=== PATIENT | male | born 1955 | race Caucasian/White ===

== ENCOUNTER 2018-05-30 07:32 | Observation (INO) | payer OTHER ==
[~2018-05-30] VITALS: Ht 165.1 cm; Wt 74.5 kg
[2018-05-30] VITALS (25 sets, daily range): BP systolic 97–125; BP diastolic 58–70; PULSE 48–68; RESP 8–20; Ht 165.1 cm; Wt 74.5 kg
[2018-05-30] MEDS ORDERED: CIPROFLOXACIN 400MG/D5W 200 ML IVPB ONE (08:00)
[2018-05-30] MEDS ORDERED: MITOMYCIN 5 MG INJ OP ONE (09:00)
--- NOTE | 2018-05-30 09:51 | PREAC ---
Date/Time of Note Date/Time of Note DATE: 05/30/18 TIME: 09:48 Anesthesia Eval and Record Evaluation Time Pre-Procedure Interview DATE: 05/30/18 TIME: 09:48 Age 63 Sex male NPO: 8 hrs Preoperative diagnosis Bladder CA Planned procedure Cystoscopy, TURBT, coagulation of bleeder, instillation of mitomycin, possible bilateral retrograde pyelogram and bilateral ureteral stent insertion Past Medical History Past Medical History: None Surgery & Anesthesia Issues No known issue Meds Anticoagulation: No Beta Neal within 24 hr: No Reason Beta Neal not given: Pt. not on B-Neal Meds reviewed: Yes Allergies Coded Allergies: No Known Drug Allergies (Unverified Allergy, Unknown, 05/29/18) Allergies Reviewed: Yes Labs/Studies Labs Reviewed: Reviewed by anesthesiologist test: N/A Pre-procedure Exam Last vitals Vital Signs Date Temp Pulse Resp B/P (MAP) Pulse Ox O2 O2 Flow FiO2 Time Delivery Rate 05/30/18 96.9 51 16 106/61 100 Room Air 07:42 (76) Airway: Adequate mouth opening Mallampati: Mallampati I Teeth: Normal Lung: Normal Heart: Normal ASA Physical Status ASA physical status: 1 Emergency: None Planned Anesthetic General/MAC: ETT Planned Pain Management Parenteral pain med Pre-operative Attestations Prior to commencing anesthesia and surgery, the patient was re-evaluated, there was verification of: *The patient's identity *The results of appropriate recent lab work and preoperative vital signs *The above evaluation not changing prior to induction *Anesthetic plan, risk benefits, alternative and complications discussed with patient/family; questions answered; patient/family understands, accepts and wishes to proceed. NIGHAT COLLADO MD May 30, 2018 09:51
[2018-05-30] MEDS ORDERED: SUCCINYLCHOLINE CHLORIDE 100 MG/5 ML SYG IV ONE (10:23)
[2018-05-30] MEDS ORDERED: ROCURONIUM 50 MG INJ ONE (10:23)
[2018-05-30] MEDS ORDERED: LIDOCAINE 2% (SDV) 5 ML INJ ONE (10:23)
[2018-05-30] MEDS ORDERED: NEOSTIGMINE 3 MG/3 ML SYRINGE ONE ×2 (10:23→10:28)
[2018-05-30] MEDS ORDERED: GLYCOPYRROLATE 0.4 MG INJ ONE ×2 (10:23→10:28)
[2018-05-30] MEDS ORDERED: PROPOFOL 20 ML ONE (10:23)
--- NOTE | 2018-05-30 10:25 | HPN ---
Date/Time of Note Date/Time of Note DATE: 05/30/18 TIME: 10:25 Interval H&P Admission Note Pt. seen H&P reviewed: No system changes SHASHANK DIANA May 30, 2018 10:25
[2018-05-30] MEDS ORDERED: IOHEXOL 300MG/ML 30 ML BTL ONE (10:42)
[2018-05-30] MEDS ORDERED: MEPERIDINE 100 MG INJ ONE (10:58)
[2018-05-30] MEDS ORDERED: BELLADONNA ALK/OPIUM SUPP PR SCH (12:00)
[2018-05-30] MEDS ORDERED: DIPHENHYDRAMINE 50 MG INJ IV PRN (12:00)
[2018-05-30] MEDS ORDERED: MEPERIDINE 25 MG INJ IV PRN (12:00)
[2018-05-30] MEDS ORDERED: ONDANSETRON 4 MG INJ IV PRN (12:00)
[2018-05-30] MEDS ORDERED: METOCLOPRAMIDE 10 MG INJ IV PRN (12:00)
[2018-05-30] MEDS ORDERED: MIDAZOLAM 1 MG/ML 2 ML INJ IV PRN (12:00)
[2018-05-30] MEDS ORDERED: EPHEDrine SULFATE 50 MG/5 ML SYG IV PRN (12:00)
[2018-05-30] MEDS ORDERED: HYDROmorphONE 1 MG/5 ML IV SYRINGE IV PRN ×2 (12:00)
[2018-05-30] MEDS ORDERED: LABETALOL HCL 20MG INJ IV PRN (12:00)
[2018-05-30] MEDS ORDERED: hydrALAzine 20 MG INJ IV PRN (12:00)
[2018-05-30] MEDS ORDERED: OXYCODONE/ACETAMINOPHEN (5/325) TAB PO PRN ×2 (12:00)
[2018-05-30] MEDS ORDERED: FENTAnyl 50 MCG/ML VIAL IV PRN ×3 (12:00)
[2018-05-30] MEDS ORDERED: ATROPINE 1 MG/10 ML SYRINGE ONE (12:18)
--- NOTE | 2018-05-30 12:56 | OPR ---
Date/Time of Note Date/Time of Note DATE: 05/30/18 TIME: 12:53 Operative Report Preoperative Diagnosis Bladder cancer Postoperative Diagnosis Bladder cancer, hemorrhagic prostatitis, bph Operation/Procedure Performed CYtso , TURBT (large),.coagulation of bladder neck and prostate Surgeon lucía Plate Former none Anesthesia Type: general Estimated Blood Loss: 10 - 50 ml's Transfusion none Specimen bladder tumor Grafts/Implants none Tubes/Drains [address] Complications none Pt Condition Post Procedure: stable Disposition: PACU Indications bladder cancer Procedure Description dict [id number] SHASHANK DIANA May 30, 2018 12:56
[2018-05-30] MEDS: HYDROmorphONE 1 MG/5 ML IV SYRINGE IV PRN ×2 (12:58→13:14)
[2018-05-30] MEDS ORDERED: BELLADONNA ALK/OPIUM SUPP PR PRN (13:00)
[2018-05-30] MEDS ORDERED: MAGNESIUM HYDROXIDE 30ML CUP PO PRN (13:00)
--- NOTE | 2018-05-30 13:38 | PAC ---
Date/Time of Note Date/Time of Note DATE: 05/30/18 TIME: 13:38 Post-Anesthesia Notes Post-Anesthesia Note Last documented vital signs Vital Signs Date Temp Pulse Resp B/P (MAP) Pulse Ox O2 O2 Flow FiO2 Time Delivery Rate 05/30/18 98.1 12:59 05/30/18 68 16 125/63 99 Mask 12:42 (83) Activity: WNL Respiratory function: WNL Cardiovascular function: WNL Mental status: Baseline Pain reasonably controlled: Yes Hydration appropriate: Yes Nausea/Vomiting absent: Yes NIGHAT COLLADO MD May 30, 2018 13:38
[2018-05-30] MEDS: HYDROCODONE/APAP (5/325) TAB PO PRN ×2 (16:56→21:02)
--- NOTE | 2018-05-30 17:22 | OPR ---
DATE OF OPERATION: 05/30/2018 PREOPERATIVE DIAGNOSIS: Bladder cancer. POSTOPERATIVE DIAGNOSES: 1. Bladder cancer. 2. Benign prostatic hypertrophy. 3. Hemorrhagic prostatitis. PROCEDURES: Cystoscopy, transurethral resection of large bladder tumor, coagulation of bladder neck and coagulation prostatic fossa. SURGEON: Pipe Diana MD ANESTHESIA: General. COMPLICATIONS: None. ESTIMATED BLOOD LOSS: 20 mL. SPECIMEN: Bladder tumor. DESCRIPTION OF PROCEDURE: The patient was brought into the operating room and placed on the operatin g table in the supine lithotomy position. He was prepped and draped in the usual fashion after anest hesia was induced. A timeout was undertaken. Appropriate pressure points were padded. He received preoperative antibiotic therapy and sequential compression devices were applied. Rigid cystoscopy wa s undertaken with a 12-degree, 30-degree and 70-degree angle lens. No abnormalities of the anterior urethra could be appreciated. Trilobar enlargement of the prostatic lobes was noted. Multiple dilat ed blood vessels appreciated within the prostatic fossa which were extending onto the bladder neck wh ich were friable in nature and easily started to bleed. The bladder was inspected in a systematic fa shion and marked trabeculation is noted. Bilateral ureteral orifices are within normal limits and we ll preserved throughout the entire case. Just distal to the bladder neck in the midline of the dome of the bladder extending onto the posterior wall is a very large bladder tumor approximately 5 x 5 cm which is more flat in nature than papillary yet there are papillary regions. It is challenging to a ccess this area due to the large prostate. With gentle manipulation with external pressure on the do me of the bladder, the tumor was brought into visual site and multiple biopsies from this region were obtained for tissue specimen and rule out muscle invasion. No perforation occurred. The tumor was then coagulated with the resectoscope utilizing the rollerball. All tumor burden was removed. Reeva luation demonstrated complete removal on visualization of tumor burden as well as complete hemostasis . Oozing from the bladder neck was appreciated as well as within the prostatic fossa and thus utiliz ing the rollerball, coagulation of the bladder neck was undertaken as well as the proximal 1/3 of the prostatic fossa. Thorough hemostasis was obtained. A 22-Croatian 3-way Garcia catheter was inserted. Slow continuous bladder irrigation was initiated and the efflux of urine was noted to be light pink. Due to the above findings, mitomycin was not instilled. He was transferred to recovery room in sta ble condition and will remain overnight for 23-hour observation with continuous bladder irrigation. He will be initiated on Flomax and Proscar. No noted complications could be appreciated. Further in tervention evaluation is pending clinical course and results of above and pathology. Dictated By: PIPE DIANA MD EGR/NTS Conf#: [id number] DID#: [id number]
[2018-05-30] MEDS: CIPROFLOXACIN 500 MG TAB PO SCH (17:57)
[2018-05-30] MEDS: DEXTROSE 5%-0.45% NACL 1,000 ML IV SCH (17:58)
[2018-05-30] MEDS ORDERED: TAMSULOSIN (SR) 0.4 MG CAP PO SCH (21:00)
[2018-05-30] MEDS: DOCUSATE SODIUM 100 MG CAP PO SCH (21:01)
[2018-05-30] MEDS ORDERED: ZOLPIDEM 5 MG TAB PO PRN (22:00)
[2018-05-31 00:44] VITALS: BP 92/58; PULSE 60; RESP 20
[2018-05-31] MEDS: HYDROCODONE/APAP (10/325) TAB PO PRN ×2 (02:08→11:02)
[2018-05-31 02:11] VITALS: BP 90/51; PULSE 56; RESP 20
[2018-05-31] MEDS: CIPROFLOXACIN 500 MG TAB PO SCH (06:11)
[2018-05-31 08:23] VITALS: BP 86/52; PULSE 62; RESP 18
[2018-05-31] MEDS: DOCUSATE SODIUM 100 MG CAP PO SCH (08:40)
[2018-05-31] MEDS: morphine 2 MG INJ IV PRN ×2 (08:41→14:10)
[2018-05-31] MEDS: DEXTROSE 5%-0.45% NACL 1,000 ML IV SCH (08:49)
[2018-05-31] MEDS ORDERED: FINASTERIDE 5 MG TAB PO SCH (09:00)
--- NOTE | 2018-05-31 09:17 | PDOCDIS ---
Discharge Instructions DIAGNOSIS Discharge Diagnosis Bladder cancer and BPH CONDITION Susana Patient Condition: [id number] Good HOME CARE INSTRUCTIONS: Susana Diet Instructions: Yumiko Regular ACTIVITY: Susana Activity Restrictions: Yumiko No Weight Bearing Susana Bathing Restrictions: Yumiko Shower FOLLOW UP/APPOINTMENTS Follow-up Plan Follow up next week for a morning appointment to remove Garcia REFERRALS Susana Referring Provider: SHASHANK Ruiz OTHER ORDERS: Other Orders: DC with Garcia to leg bag and plug side port of 3 way SHASHANK Madrigal May 31, 2018 09:17
--- NOTE | 2018-05-31 09:32 | DS ---
DATE OF ADMISSION: 05/30/2018 DATE OF DISCHARGE: Kendrick is status post TURBT of a large bladder tumor and coagulation of prostatic fossa for hemorrhag ic prostatitis and BPH. The patient remained overnight for observation. He was placed on continuous bladder irrigation which was discontinued several hours ago. The output of urine remains crystal ino ar. Patient is eating food well without any nausea or vomiting. The patient has a history of taking pain medication. His pain is well controlled on Driggs 10/325; 5/325 was not holding his pain contro lled. The patient has a history of low blood pressure. PHYSICAL EXAMINATION: This morning, vital signs stable. Blood pressure 86/52, heart rate 62, respir ations 18, temperature 98.5. ABDOMEN: Soft, nondistended, nontender, no palpable masses. No CVA te nderness, no masses. Garcia draining crystal clear urine. EXTREMITIES: No calf tenderness. White blood count 7.3, hemoglobin 12.6. IMPRESSION: Bladder cancer, hemorrhagic prostatitis. PLAN: Discharge to home with Garcia to leg bag, Driggs 10/325 one tab p.o. q.6h. p.r.n., dispensed #3 0, no refill; Colace 100 mg p.o. t.i.d. Flomax 0.4 mg 30 minutes after dinner, Proscar 5 mg p.o. merly y. Follow up next week for a trial of void. All questions answered. Dictated By: SHASHANK BUSH/NTS Conf#: [id number] DID#: [id number]
== END 2018-05-31 14:20 | disposition home or self-care (01) ==
LOC: SDS 07:32 → REC 12:53 → SDS 12:53 → MS1 15:46
PROVIDERS: ADMIT Urology; ATTEND Urology
DX: C67.5 Malignant neoplasm of bladder neck (principal); N41.9 Inflammatory disease of prostate, unspecified; N40.1 Benign prostatic hyperplasia with lower urinary tract symptoms
CPT/HCPCS: 52214; 85025; 88305; G0378; J0461; J0744; J1170; J2175; J2250; J2270; J2405; J2710; J7042; J9280; Q9967

== ENCOUNTER 2018-08-15 05:38 | Day surgery (SDC) | payer OTHER ==
[2018-08-14 11:37] VITALS: BMI 25.8
[2018-08-15] VITALS (14 sets, daily range): BP systolic 88–119; BP diastolic 59–80; PULSE 49–68; RESP 4–18; Ht 165.1 cm; Wt 69.2 kg
[~2018-08-15] VITALS: Ht 165.1 cm; Wt 69.2 kg
[~2018-08-15 05:38] MED LIST: CIPROFLOXACIN 400 MG in D5W 200 ML IVPB ONE
--- NOTE | 2018-08-15 07:01 | PREAC ---
Date/Time of Note Date/Time of Note DATE: 08/15/18 TIME: 07:00 Anesthesia Eval and Record Evaluation Time Pre-Procedure Interview DATE: 08/15/18 TIME: 07:00 Age 63 Sex male NPO: 8 hrs Preoperative diagnosis Bladder tumor, BPH Planned procedure Cystoscopy, TURBT, possible TURP Past Medical History Past Medical History: None Surgery & Anesthesia Issues No known issue Meds Anticoagulation: No Beta Neal within 24 hr: No Reason Beta Neal not given: Pt. not on B-Neal Reported Medications Zolpidem Tartrate* (Ambien*) 10 Mg Tablet, 10 MG PO QHS PRN for INSOMNIA, TAB 08/15/18 Meds reviewed: Yes Allergies Coded Allergies: No Known Drug Allergies (Unverified Allergy, Unknown, 08/15/18) Allergies Reviewed: Yes Labs/Studies Labs Reviewed: Reviewed by anesthesiologist test: N/A Pre-procedure Exam Airway: Adequate mouth opening Mallampati: Mallampati I Teeth: Normal Lung: Normal Heart: Normal ASA Physical Status ASA physical status: 2 Emergency: None Planned Anesthetic General/MAC: ETT, LMA Planned Pain Management Parenteral pain med Pre-operative Attestations Prior to commencing anesthesia and surgery, the patient was re-evaluated, there was verification of: *The patient's identity *The results of appropriate recent lab work and preoperative vital signs *The above evaluation not changing prior to induction *Anesthetic plan, risk benefits, alternative and complications discussed with patient/family; questions answered; patient/family understands, accepts and wishes to proceed. NIGHAT COLLADO MD Aug 15, 2018 07:01
[2018-08-15] MEDS ORDERED: ZOLP10TA PO (07:04)
[2018-08-15] MEDS ORDERED: LIDOCAINE 2% (SDV) 5 ML INJ ONE (07:27)
[2018-08-15] MEDS ORDERED: ROCURONIUM 50 MG INJ ONE (07:27)
[2018-08-15] MEDS ORDERED: NEOSTIGMINE 3 MG/3 ML SYRINGE ONE ×2 (07:27→09:58)
[2018-08-15] MEDS ORDERED: GLYCOPYRROLATE 0.4 MG INJ ONE ×2 (07:27→09:58)
[2018-08-15] MEDS ORDERED: SUCCINYLCHOLINE CHLORIDE 100 MG/5 ML SYG IV ONE (07:27)
[2018-08-15] MEDS ORDERED: PROPOFOL 20 ML ONE (07:27)
[2018-08-15] MEDS ORDERED: MEPERIDINE 100 MG INJ ONE (07:27)
[2018-08-15] MEDS ORDERED: CIPROFLOXACIN 400MG/D5W 200 ML ONE (07:30)
[2018-08-15] MEDS ORDERED: LACTATED RINGER'S 1,000 ML IV SCH (07:30)
--- NOTE | 2018-08-15 07:37 | HPN ---
Date/Time of Note Date/Time of Note DATE: 08/15/18 TIME: 07:37 Interval H&P Admission Note Pt. seen H&P reviewed: No system changes SHASHANK DIANA Aug 15, 2018 07:37
[2018-08-15] MEDS ORDERED: ONDANSETRON 4 MG INJ ONE (08:26)
[2018-08-15] MEDS ORDERED: FENTAnyl 50 MCG/ML VIAL IV PRN ×2 (08:30)
[2018-08-15] MEDS ORDERED: METOCLOPRAMIDE 10 MG INJ IV PRN (08:30)
[2018-08-15] MEDS ORDERED: BELLADONNA ALK/OPIUM SUPP PR ONE (08:30)
[2018-08-15] MEDS ORDERED: LABETALOL HCL 20MG INJ IV PRN (08:30)
[2018-08-15] MEDS ORDERED: ONDANSETRON 4 MG INJ IV PRN (08:30)
[2018-08-15] MEDS ORDERED: OXYCODONE/ACETAMINOPHEN (5/325) TAB PO PRN ×2 (08:30)
[2018-08-15] MEDS ORDERED: MIDAZOLAM 1 MG/ML 2 ML INJ IV PRN (08:30)
[2018-08-15] MEDS ORDERED: DIPHENHYDRAMINE 50 MG INJ IV PRN (08:30)
[2018-08-15] MEDS ORDERED: hydrALAzine 20 MG INJ IV PRN (08:30)
[2018-08-15] MEDS ORDERED: HYDROmorphONE 1 MG/5 ML IV SYRINGE IV PRN ×3 (08:30)
[2018-08-15] MEDS ORDERED: MEPERIDINE 25 MG INJ IV PRN (08:30)
[2018-08-15] MEDS ORDERED: EPHEDrine 25 MG/5 ML SYG IV PRN (08:30)
[2018-08-15] MEDS: FENTAnyl 50 MCG/ML VIAL IV PRN ×2 (08:47→08:55)
--- NOTE | 2018-08-15 09:11 | OPR ---
Date/Time of Note Date/Time of Note DATE: 08/15/18 TIME: 09:08 Operative Report Procedure Date: Aug 15, 2018 Preoperative Diagnosis Bladder Cancer Postoperative Diagnosis Bladder Cancer, BPH, Urethral stricture Operation/Procedure Performed Cysto, urethral dilation, TURBT, coagulation of prostatic bed Surgeon Arsenio Cash Shortage Investigator none Anesthesia Type: general Anesthesiologist: NIGHAT COLLADO MD Estimated Blood Loss: none Transfusion none Specimen base bladder tumor Grafts/Implants none Tubes/Drains [address] Complications none Pt Condition Post Procedure: stable Disposition: PACU Indications bladder cancer, rule out muscle invasion Procedure Description dict [id number] SHASHANK DIANA Aug 15, 2018 09:11
--- NOTE | 2018-08-15 09:14 | PDOCDIS ---
Discharge Instructions DIAGNOSIS Discharge Diagnosis Bladder cancer, BPH CONDITION Susana Patient Condition: Yumiko Good HOME CARE INSTRUCTIONS: Susana Diet Instructions: Yumiko Regular ACTIVITY: Susana Activity Restrictions: Yumiko Slowly Increase Activity Susana Bathing Restrictions: Yumiko Tub Bath FOLLOW UP/APPOINTMENTS Follow-up Plan August 27, 8 am for removal of Garcia and discuss pathology, call office to confirm time and date May have blood in urine Light aqctivity Hydration with water Proscar 5 mg po qd (also known as Finasteride) Tylenol OK Hold aspirin and Ibuprofen x 10 d Garcia to leg bag REFERRALS Susana Referring Provider: SHASHANK Ruiz OTHER ORDERS: Other Orders: As above SHASHANK DIANA Aug 15, 2018 09:14
--- NOTE | 2018-08-15 09:27 | PAC ---
Date/Time of Note Date/Time of Note DATE: 08/15/18 TIME: 09:27 Post-Anesthesia Notes Post-Anesthesia Note Last documented vital signs Vital Signs Date Temp Pulse Resp B/P (MAP) Pulse Ox O2 O2 Flow FiO2 Time Delivery Rate 08/15/18 56 15 110/73 100 Nasal 3.0 09:22 (85) Cannula 08/15/18 98.0 08:55 Activity: WNL Respiratory function: WNL Cardiovascular function: WNL Mental status: Baseline Pain reasonably controlled: Yes Hydration appropriate: Yes Nausea/Vomiting absent: Yes Comments BT: 98.2 NIGHAT COLLADO MD Aug 15, 2018 09:27
--- NOTE | 2018-08-15 10:43 | OPR ---
DATE OF OPERATION: 08/15/2018 PREOPERATIVE DIAGNOSES: 1. Bladder cancer. 2. Benign prostatic hypertrophy. POSTOPERATIVE DIAGNOSES: 1. Bladder cancer. 2. Benign prostatic hypertrophy. 3. Urethral stricture. OPERATION PERFORMED: Cystoscopy, urethral dilatation, transurethral resection at the base of bladder tumor, medium sized, coagulation of prostatic fossa. SURGEON: Pipe Diana M.D. ANESTHESIA: General. COMPLICATIONS: None. DRAINS: 20-Marshallese 2-way Garcia catheter. DESCRIPTION OF PROCEDURE: The patient was brought into the operating room and placed on the operatin g table in supine lithotomy position. He was prepped and draped in the usual fashion after anesthesi a was induced. A timeout was undertaken. Appropriate pressure points were padded. He received preo perative antibiotic therapy. I was unable to insert the rigid cystoscope due to an anterior urethral stricture, which was subsequently dilated with the male sounds from 14-Marshallese to 26-Marshallese. This ea sily allowed then for the rigid cystoscope to be inserted into the bladder. Trilobar enlargement of prostatic lobes was noted. Multiple dilated blood vessels extending from the prostatic fossa onto th e bladder neck, which easily started to bleed. The bladder was inspected with 12-degree, 30-degree a nd 70-degree angle lens in a systematic fashion. Bilateral ureteral orifices were well preserved and identified throughout the entire case. The bladder is well healed without any tumor being appreciat ed at the base of the bladder where I previously resected. A resection was undertaken with a cold cu p biopsy thus obtaining deep biopsy tissue into the muscular layer. The area was then coagulated wit h pinpoint hemostasis being obtained. No bleeding within the bladder could be appreciated. Yet ther e was active oozing from the prostatic fossa and bladder neck. Pinpoint hemostasis was obtained with in the proximal prostatic fossa. A 2-way Garcia catheter was then inserted. The efflux of urine was noted to be light pink. No clots were appreciated. This was left to gravity drainage and suppositor y was placed. He will be transferred to recovery room and then discharged to home later today on Nor co 1 tab of 5/325 p.o. q.6 hours p.r.n., dispense #30, no refill. Proscar 5 mg p.o. daily, dispensed #90 one refill. Follow up in the office in 10 days' time for a trial void and discussion of pathology to rule out mus ino invasion. All questions were answered with the patient, ex- and daughter. Dictated By: PIPE DIANA MD EGR/NTS Conf#: [id number] DID#: [id number] CC: PIPE DIANA MD;*EndCC*
== END 2018-08-15 10:20 | disposition home or self-care (01) ==
LOC: SUR 05:38 → SDS 05:38 → SUR 10:20
PROVIDERS: ATTEND Urology
DX: D49.4 Neoplasm of unspecified behavior of bladder (principal); N40.1 Benign prostatic hyperplasia with lower urinary tract symptoms; N32.89 Other specified disorders of bladder; Z85.51 Personal history of malignant neoplasm of bladder
CPT/HCPCS: 52224; 52341; 88307; J0744; J1170; J2175; J2405; J2710; J3010